=== PATIENT | male | born 1985 ===

== ENCOUNTER → 2017-09-11 07:38 | Outpatient (CLI) | payer OTHER, SELFPAY ==
--- NOTE | 2017-09-11 | DI.MRI.S_ITS ---
PROCEDURE: MR HEAD/BRAIN WO/W CON INDICATIONS: HEADACHE TECHNIQUE: Noncontrast axial T1 spin echo, axial T2 fast spin echo, sagittal and axial FLAIR, coronal T2 fast spin echo, axial gradient echo, axial diffusion and ADC through the brain. After the administration of contrast, axial and coronal 3D VIBE or T1 spin echo with fat saturation through the brain. COMPARISON: None. FINDINGS: Image quality: Excellent. CSF Spaces: Basal cisterns are patent. No extra-axial fluid collections. Ventricles are normal in size and shape. Brain: No midline shift. No intracranial bleeds or masses. No abnormal intracranial enhancement. The brainstem appears normal. Diffusion-weighted images demonstrate no acute ischemic insults. No chronic ischemic insults. Normal intravascular flow voids are present. Skull and face: Calvarial marrow is normal in signal. Orbits appear normal. Sinuses: Right maxillary sinus retention cyst is present. Sinuses and mastoids otherwise appear clear. IMPRESSION: 1. No explanation for headache. 2. No acute process. No recent infarct. Dictated by: Nabeel Terrell M.D. on 09/11/2017 at 10:54 Approved by: Nabeel Terrell M.D. on 09/11/2017 at 10:55
--- NOTE | 2017-09-11 | DI.MRI.S_ITS ---
PROCEDURE: MR ANGIO HEAD WO CON INDICATIONS: HEADACHE TECHNIQUE: Noncontrast axial 3-D rdwc-kx-vidiew MR angiogram, with 3-dimensional maximum intensity projection (MIP) reformats of the internal carotid arteries and posterior circulation then performed. COMPARISON: None. FINDINGS: Image quality: Excellent. Anterior circulation: Intracranial internal carotid arteries demonstrate normal size and intraluminal flow signal. The flow within the paired anterior cerebral arteries is normal and symmetric. The flow within the middle cerebral arteries is normal and symmetric. The anterior communicating artery is seen. No stenoses, occlusions, or aneurysms. Posterior circulation: Visualized portions of the vertebral arteries demonstrate normal caliber, and join to form a normal appearing basilar artery. The flow within the posterior cerebral arteries is normal and symmetric. No stenoses, occlusions, or aneurysms. IMPRESSION: Negative cerebral MR angiography. Dictated by: Nabeel Terrell M.D. on 09/11/2017 at 10:48 Approved by: Nabeel Terrell M.D. on 09/11/2017 at 10:53
== END ==
PROVIDERS: Visit Provider Family Medicine
DX: R51 Headache (principal)
CPT/HCPCS: 70544; 70553; A9579

== ENCOUNTER 2017-10-30 14:55 | Day surgery (SDC) | payer OTHER, SELFPAY ==
--- NOTE | 2017-10-30 | PATH_ITS ---
[facility] Accession Number: [id number] . 01 Material submitted: . PART A: NO SITE DESIGNATED PART B: CERVICAL INLET PATCH . 01 Clinical history: . A: RULE OUT BARRETTS ESOPHAGUS B: BIOPSY CERVICAL INLET PATCH RULE OUT OXYNTIC MUCOSA . 02 Diagnosis: A. Esophagus, Biopsy: Columnar mucosa with no diagnostic abnormality. Negative for intestinal metaplasia. Negative for dysplasia and malignancy. . B. Designated Cervical Inlet Patch, Biopsy: Columnar oxyntic mucosa consistent with inlet patch. Negative for intestinal metaplasia. Negative for dysplasia and malignancy. V/11/01/2017 . 02 Electronically signed: . Nannette Rico MD, Pathologist NPI- [id number] . 01 Gross description: . Part A: NO SITE DESIGNATED: Received in formalin is 1 fragment(s) of morrow, soft tissue measuring 0.3 x 0.2 x 0.2 cm submitted entirely in 1 cassette(s) Part B: CERVICAL INLET PATCH: Received in formalin are 2 fragment(s) of morrow, soft tissue measuring 0.3 x 0.3 x 0.1 cm to 0.2 x 0.1 x 0.1 cm submitted entirely in 1 cassette(s) /CKI /CKI . 02 Pathologist provided ICD-10: R10.13 . 02 CPT . 590869, [id number] Performed at: 01 [facility] [address] [place] [address], [place], [place] [id number] MD Pavel Barros MD Phone: [phone] Performed at: 02 [facility] [address] [place], [place] [id number] MD Vasyl Murphy MD Phone: [phone]
[2017-10-30 15:23] VITALS: BP 130/87; PULSE 65; RESP 14; TEMP 36.4; O2SAT 98; BMI 25.0
[2017-10-30] MEDS: SODIUM CHLORIDE 0.9% 1,000 ML 42 ML IV (15:31)
--- NOTE | 2017-10-30 16:04 | PM.HP.1 ---
History of Present Illness Date Patient Seen: 10/30/17 Time Patient Seen: 16:05 Chief complaint: [id number] Narrative: Severe GE reflux with cervical dysphagia Patient History Medical History Dysphagia (Acute) GERD (gastroesophageal reflux disease) (Acute) Migraine headache (Acute) Family & Social History Social History: household members spouse,children Meds Home Medications Medication Instructions Recorded Confirmed Type hvqffez-[id number]-kfdcejpk 2 tab PO Q6H PRN 10/30/17 10/30/17 History [Excedrin Extra Strength] omeprazole magnesium [Prilosec] 10 mg PO DAILY 10/30/17 10/30/17 History Allergies Allergy/AdvReac Type Severity Reaction Status Date / Time No Known Drug Allergies Allergy Verified 10/30/17 15:20 Exam Vital Signs (past 8 hours): - 10/30/17 15:23 Temperature 97.5 F L Pulse Rate 65 Respiratory Rate 14 Blood Pressure 130/87 H Pulse Oximetry 98 Oxygen Delivery Method Room Air Narrative Exam Narrative: Oropharynx free of lesions Chest clear to auscultation percussion Cardiac exam reveals no S3 or Assessment & Plan Plan: Assessment/Plan Narrative: Cervical dysphagia with a background history of GE reflux rule out mechanical lesion rule out esophagitis rule out the eosinophilic esophagitis EGD to be performed with possible dilation
--- NOTE | 2017-10-30 16:14 | PM.OP.ENDO ---
Operative Date/Time/Diagnoses Date of procedure: 10/30/17 Time of procedure: 16:14 Pre-op diagnosis: see indication Post-op diagnosis: same (See findings) Procedure & Clinicians Study performed: EGD with biopsy Same procedure as scheduled: Yes Indications: GE reflux with dysphagia Surgeon: Phillip Luz Procedure Notes Procedure in detail: After informed consent was obtained the patient was placed in left lateral decubitus position. The video upper scope was placed into the oropharynx with the patient was followed into the esophagus. The esophagus, stomach, duodenum were carefully examined. On withdrawal retroflexed view the GE junction was performed. The scope was removed. The patient tolerated the procedure well. Blood loss none Complications none Sedation Mac per anesthesia Findings 1. Bilateral cervical inlet patches extending from the upper esophageal sphincter down at least 3-4 cm. No evidence on either one of ulceration. Biopsies taken to rule out oxyntic mucosa. 2. Otherwise completely normal esophagus in the body. No evidence of the eosinophilic esophagitis 3. Fairly normal squamocolumnar junction though there may be a bit of abnormal gastric mucosa above the level of the gastric folds chief on 1 aspect. This was biopsied x2. 4. Normal stomach proximally and distally 5. Normal duodenal bulb and sweep the results of the biopsies. We will wait biopsy results but he should follow up with Dr. Hull or myself if he wants to be seen on [place] or Dr. Butler in [place]. Further recommendations follow the results of the biopsies
[2017-10-30 16:20] VITALS: BP 113/79; PULSE 71; RESP 16; TEMP 37.1; O2SAT 97
[2017-10-30 16:25] VITALS: BP 112/76; PULSE 75; RESP 16; TEMP 36.7; O2SAT 95
[2017-10-30 16:30] VITALS: BP 112/76; PULSE 75; RESP 14; TEMP 36.8; O2SAT 95
[2017-10-30 16:34] VITALS: BP 124/87; PULSE 81; RESP 20; TEMP 36.8; O2SAT 93
== END 2017-10-30 17:00 ==
PROVIDERS: Visit Provider Internal Medicine Gastroenterology
PROC: 0DJ08ZZ Inspection of Upper Intestinal Tract, Via Natural or Artificial Opening Endoscopic (ICD-10-PCS; CPT 43235; principal; 2017-10-30 16:00)
DX: K21.9 Gastro-esophageal reflux disease without esophagitis (principal); R13.14 Dysphagia, pharyngoesophageal phase
CPT/HCPCS: 43239; 88305; J2250; J2704; J3010